=== PATIENT | male | born 1980 | race Two or more races ===

== ENCOUNTER 2024-03-25 09:54 | Emergency (ER) | payer OTHER ==
[~2024-03-25] VITALS: Ht 177.8 cm; Wt 80.7 kg
[2024-03-25 10:48] VITALS: BP 104/65; PULSE 83; RESP 12; TEMP 97.9; O2SAT 94
[2024-03-25] MEDS ORDERED: IBUP1TAB5 PO (12:20)
[2024-03-25] MEDS ORDERED: DOXY1CAP57 PO (12:20)
== END 2024-03-25 12:28 | disposition home or self-care (01) ==
LOC: ER 09:54
DX: L03.012 Cellulitis of left finger (principal); F17.210 Nicotine dependence, cigarettes, uncomplicated; F12.90 Cannabis use, unspecified, uncomplicated; Z88.0 Allergy status to penicillin; Z79.1 Long term (current) use of non-steroidal anti-inflammatories (NSAID)
CPT/HCPCS: 10060